=== PATIENT | female | born 1980 | race Caucasian/White ===

== ENCOUNTER → 2019-05-03 12:47 | Outpatient (BNVA) | payer SELFPAY | PROVIDERS: PCP Nurse Practitioner Family; Visit Provider Emergency Medicine | DX: S99.912A Unspecified injury of left ankle, initial encounter (principal); X58.XXXA Exposure to other specified factors, initial encounter | CPT/HCPCS: 73610; 73630 ==

== ENCOUNTER 2019-05-22 09:50 | Outpatient (CLI) | payer SELFPAY ==
--- NOTE | 2019-05-22 11:00 | MR_ITS ---
WS: [id number] MRI LEFT ANKLE without CONTRAST. COMPARISON: Ankle radiographs 05/03/2019 Multiplanar, multisequence imaging is performed without contrast. Marrow edema involving the lateral anterior calcaneal process. A small amount of edema within the anthony tral cuboid. Age-indeterminate fracture involving the anterior calcaneal process. Not a lot of edema through the anterior most calcaneal process suggests this could be an old injury. The adjacent perone al brevis and longus tendons contains some increased signal. There is increased signal in the superfi cial peroneal longus tendon posterior to the cuboid. Small amount of increased signal in the distal p eroneus brevis tendon posterior to the calcaneus. Tendons and ligaments of the ankle joint are intact. MR/MR ankle LT wo con* [id number] IMPRESSION: 1. Marrow signal increased in the lateral anterior calcaneal process and in th e adjacent cuboid. Suspicious for small avulsion fractures at the marrow edema site. 2. Partial tears involving the distal peroneal brevis and longus tendons. 3. Age-indeterminate fracture from the anterior calcaneal process.
--- NOTE | 2019-05-22 11:45 | MR_ITS ---
WS: [id number] MRI LEFT FOOT without CONTRAST. COMPARISON: Foot radiograph 05/03/2019. Multiplanar, multisequence imaging is performed without contrast. There is marrow edema in the lateral aspect of the anterior process of the calcaneus. Additional jerzy ow signal in the posterior third cuboid. Highly suspicious for fracture through the anterior calcanea l process. On the radiographs performed on 05/03/2019 there are probably small avulsion fractures invo lving the anterior calcaneus. Increased fluid adjacent to the peroneal brevis tendon and also the extensor digitorum brevis muscle and tendon adjacent to the lateral calcaneus. No full-thickness tears are identified. There is at le ast a partial tear with a small amount of increased fluid. Achilles tendon is intact. MR/MR foot LT wo con* [id number] IMPRESSION: 1. Marrow signal injury involving the anterior and lateral calcaneal process a nd the adjacent third cuboid. Small avulsion fractures along the anterior calca jyoti process. Consider CT evaluation to evaluate the discrete donor site and ex tent of the fracture. 2. Mild injury without full-thickness tears involving the distal peroneal brev is and longus tendons and the adjacent extensor digitorum brevis muscle/tendon. There is fluid surrounding the tendon sheath but no full-thickness tear.
== END 2019-05-22 09:51 | disposition home or self-care (01) ==
LOC: RADSHAW 09:50
PROVIDERS: PCP Nurse Practitioner Family; Visit Provider Emergency Medicine
DX: S92.002A Unspecified fracture of left calcaneus, initial encounter for closed fracture (principal); X58.XXXA Exposure to other specified factors, initial encounter
CPT/HCPCS: 73718; 73721

== ENCOUNTER 2019-06-03 15:47 | Outpatient (CLI) | payer SELFPAY | END 2019-06-03 15:48 | disposition home or self-care (01) | LOC: SPT 15:47 | PROVIDERS: PCP Nurse Practitioner Family; Visit Provider Podiatrist Foot & Ankle Surgery | DX: M76.72 Peroneal tendinitis, left leg (principal); M25.372 Other instability, left ankle | CPT/HCPCS: L1902 ==

== ENCOUNTER → 2019-09-26 08:08 | Outpatient (BNVA) | payer SELFPAY | PROVIDERS: PCP Nurse Practitioner Family; Visit Provider Podiatrist Foot & Ankle Surgery | DX: S93.492A Sprain of other ligament of left ankle, initial encounter (principal); X58.XXXA Exposure to other specified factors, initial encounter | CPT/HCPCS: 73610 ==

== ENCOUNTER → 2019-10-16 16:43 | Outpatient (BNVA) | payer SELFPAY | PROVIDERS: PCP Nurse Practitioner Family; Visit Provider Emergency Medicine | DX: M25.562 Pain in left knee (principal); M25.572 Pain in left ankle and joints of left foot | CPT/HCPCS: 73562; 73610 ==

== ENCOUNTER 2019-11-05 06:00 | Outpatient (RCR) | payer SELFPAY | END 2019-11-15 23:59 | disposition home or self-care (01) | LOC: MPT 06:00 | PROVIDERS: PCP Nurse Practitioner Family; Referring Provider Podiatrist Foot & Ankle Surgery; Visit Provider Podiatrist Foot & Ankle Surgery | DX: S93.402D Sprain of unspecified ligament of left ankle, subsequent encounter (principal); X58.XXXD Exposure to other specified factors, subsequent encounter | CPT/HCPCS: 97110; 97140; 97161 ==

== ENCOUNTER 2019-11-26 06:00 | Outpatient (RCR) | payer SELFPAY | END 2019-12-16 23:59 | disposition home or self-care (01) | LOC: SPT 06:00 | PROVIDERS: PCP Nurse Practitioner Family; Visit Provider Podiatrist Foot & Ankle Surgery | DX: S93.402D Sprain of unspecified ligament of left ankle, subsequent encounter (principal); X58.XXXD Exposure to other specified factors, subsequent encounter | CPT/HCPCS: 97110; 97140 ==

== ENCOUNTER → 2020-01-14 10:39 | Outpatient (BNVA) | payer OTHER, SELFPAY | PROVIDERS: PCP Nurse Practitioner Family; Visit Provider Nurse Practitioner Family | DX: Z11.59 Encounter for screening for other viral diseases (principal); Z20.828 Contact with and (suspected) exposure to other viral communicable diseases | CPT/HCPCS: 87635 ==

== ENCOUNTER → 2020-08-06 18:01 | Outpatient (BNVA) | payer SELFPAY | PROVIDERS: PCP Nurse Practitioner Family; Visit Provider Emergency Medicine | DX: J40 Bronchitis, not specified as acute or chronic (principal); J02.9 Acute pharyngitis, unspecified | CPT/HCPCS: 87880 ==

== ENCOUNTER → 2020-10-14 14:58 | Outpatient (BNVA) | payer SELFPAY | PROVIDERS: PCP Nurse Practitioner Family; Visit Provider Emergency Medicine | DX: M25.521 Pain in right elbow (principal) | CPT/HCPCS: 73080 ==

== ENCOUNTER → 2022-11-28 09:29 | Outpatient (BNVA) | payer SELFPAY | PROVIDERS: Visit Provider Nurse Practitioner Family | DX: R07.81 Pleurodynia (principal) | CPT/HCPCS: 71100 ==